=== PATIENT | female | born 1975 | race Caucasian/White ===

== ENCOUNTER 2018-11-28 18:01 | Emergency (ER) | payer OTHER ==
[~2018-11-28] VITALS: Ht 170.2 cm; Wt 79.0 kg
[2018-11-28 19:05] LABS: BASOPHILS # (AUTO) 0.1 X10'3 (0-0.2); BASOPHILS % (AUTO) 0.7 % (0-1); EOSINOPHILS # (AUTO) 0.1 X10'3 (0-0.9); EOSINOPHILS % (AUTO) 1.2 % (0-6); HEMATOCRIT 42.7 % (35.0-45.0); HEMOGLOBIN 14.1 g/dl (12.0-16.0); LYMPHOCYTES # (AUTO) 1.3 X10'3 (1.1-4.8); LYMPHOCYTES % (AUTO) 17.3 % (21-51); MEAN CORPUSCULAR HEMOGLOBIN 31.2 PG (27.0-31.0); MEAN CORPUSCULAR VOLUME 94.4 FL (78-98); MEAN PLATELET VOLUME 7.6 FL (7.4-10.4); MONOCYTES # (AUTO) 0.5 X10'3 (0-0.9); MONOCYTES % (AUTO) 6.1 % (2-12); NEUTROPHILS # (AUTO) 5.7 X10'3 (1.8-7.7); NEUTROPHILS % (AUTO) 74.7 % (42-75); PLATELET COUNT 239 X10'3 (140-440); RED BLOOD COUNT 4.53 X10'6 (4.20-5.60); RED CELL DISTRIBUTION WIDTH 12.9 % (11.5-14.5); WHITE BLOOD COUNT 7.6 X10'3 (4.5-11.0)
[2018-11-28 19:08] LABS: ALANINE AMINOTRANSFERASE 21 U/L (12-78); ALBUMIN 3.7 G/DL (3.4-5.0); ALKALINE PHOSPHATASE 33 IU/L (46-116); ANION GAP 9 (8-16); ASPARTATE AMINO TRANSFERASE 12 U/L (10-37); BILIRUBIN,TOTAL 0.6 MG/DL (0.1-1.0); BLOOD UREA NITROGEN 11 MG/DL (7-18); BUN/CREATININE RATIO 11.3 (6.6-38.0); CALCIUM 8.5 MG/DL (8.5-10.1); CHLORIDE 106 MMOL/L (99-107); CREATININE 0.97 MG/DL (0.40-0.90); ETHANOL < 0.010 GM/DL (0.0-0.010); GLUCOSE 96 MG/DL (70-104); POTASSIUM 3.5 MMOL/L (3.5-5.1); SODIUM 142 MMOL/L (135-145); TOTAL PROTEIN 7.5 G/DL (6.4-8.2); eGFR 62 ML/MIN
--- NOTE | 2018-11-28 19:11 | NUR ---
Assumed patient care. Report from DESTINI Villatoro. This patient is lying on her left side sleeping on bed 21. Prior to sleeping this patient exhibited paranoia and complained of audible hallucinations which included command hallucinations and strange noises. Per the [place] prec[employer] police lieutenant this patients home was very clean and organized. There is no known mental health history.
--- NOTE | 2018-11-28 19:44 | NUR ---
The patient provides additional history. She describes recently loosing her job at the [employer] as she had taken time off to investigate her neighbor for possible sexual offences. The patient describes command hallucinations that tell her to investigate her neighbor and to also masterbate. Patient describes intermittent olfactory hallucinations, like the smell of battery acid that comes and goes. In addition describes new headaches, "that surround the top of my head, not like my migranes." The new headaches have been present for about a week and a half. The patient states the voices and signals began around May of this year and have gotten more frequent. Addendum: 11/28/18 at 1948 by NIC Patient also exhibits rapid speech and flight of ideas.
--- NOTE | 2018-11-28 21:21 | NUR ---
Pt up to bathroom to provide a UA. Pt given personal hygiene products and disposable undergarments.
[2018-11-28 21:26] LABS: URINE HCG NEGATIVE (NEG)
[2018-11-28 21:38] LABS: URINE AMPHETAMINE SCREEN NEGATIVE (Neg); URINE BARBITUATE SCREEN NEGATIVE (Neg); URINE BENZODIAZEPINES SCREEN NEGATIVE (Neg); URINE CANNABINOID SCREEN NEGATIVE (Neg); URINE COCAINE SCREEN NEGATIVE (Neg); URINE METHADONE SCREEN NEGATIVE (Neg); URINE OPIATE SCREEN NEGATIVE (Neg); URINE PHENCYCLIDINE SCREEN NEGATIVE (Neg)
--- NOTE | 2018-11-28 22:30 | NUR ---
Packet faxed to [facility]. Confirmed receipt of packet with Gene @ [facility] office.
--- NOTE | 2018-11-29 00:12 | NUR ---
Patient is sleeping quietly. In direct view from nursing station. Q15 minute rounding for patient safety.
--- NOTE | 2018-11-29 06:30 | NUR ---
Asleep upon change of shift observation. Undisturbed at this time. Color and breathing WNL.
--- NOTE | 2018-11-29 08:00 | NUR ---
[id number], Erick Conroy called asking for info on patient's status. His number is [phone]. His Claribel's phone number (patient's sister) is [phone]. And pt's other sister Sandra's number is [phone].
--- NOTE | 2018-11-29 08:30 | NUR ---
Awakened for breakfast. Ate her meal without event. Stares at staff but says nothing.
--- NOTE | 2018-11-29 09:30 | NUR ---
Criss from [facility] at bedside to evaluate patient. Patient's meet criteria for continued 5150 status.
--- NOTE | 2018-11-29 13:00 | NUR ---
Slept until this time. Awakened for lunch. Ate her meal and returned to sleep.
[2018-11-29 13:04] LABS: CLARITY,URINE CLOUDY (Clear); COLOR,URINE ORANGE (Yellow); GLUCOSE, URINE NEGATIVE (Neg); KETONES,URINE 15 mg/dl (Neg); LEUKOCYTE ESTERASE ,URINE SMALL (Neg); NITRITES, URINE NEGATIVE (Neg); OCCULT BLOOD,URINE LARGE (Neg); PH,URINE 8.5 (4.8-8.0); PROTEIN,URINE 100 mg/dl (Neg); UROBILINOGEN,URINE >=8.0 E.U/dL (0.2-1.0)
[2018-11-29 13:14] LABS: UA COLLECTION TYPE CLN CATCH MIDSTREAM
[2018-11-29 13:20] LABS: BACTERIA,URINE 4+ /HPF (Neg); MUCUS STRANDS MANY /LPF (Neg); RBC,URINE 50-100 /HPF (0-2); SQUAMOUS EPITHELIAL CELL,UR MANY /LPF (FEW)
--- NOTE | 2018-11-29 14:30 | NUR ---
Rene Sahu PA here to evaluate patient for possible admission. Patient spoke at length to Rene Sahu. Psychotic, paranoid content of conversation noted.
[2018-11-29 17:50] VITALS: BP 113/74
--- NOTE | 2018-11-29 17:52 | NUR ---
Accepted for in-patient care at [facility]. Will be brought up after change of shift.
[2018-11-29] MEDS ORDERED: NO HOME MEDS (20:00)
== END 2018-11-29 20:22 ==
LOC: ER 18:02
DX: F29 Unspecified psychosis not due to a substance or known physiological condition (principal); F22 Delusional disorders; R51 Headache; R68.84 Jaw pain; Z88.1 Allergy status to other antibiotic agents
CPT/HCPCS: 36415; 80053; 80305; 80320; 81001; 81025; 84443; 85025; 99285

== ENCOUNTER 2018-11-29 16:49 | Inpatient (IN) | payer MEDICAID, OTHER ==
[~2018-11-29] VITALS: Ht 170.2 cm; Wt 85.0 kg
[2018-11-29] MEDS ORDERED: hydrOXYzine 25 MG tablet PO PRN (19:20)
[2018-11-29] MEDS ORDERED: mag hydrox/Alum hydrox/simeth 30ml oral suspension PO PRN (19:20)
[2018-11-29] MEDS ORDERED: magnesium hydroxide 30ml (MOM) UD suspension PO PRN (19:20)
[2018-11-29] MEDS ORDERED: acetaminophen 325mg tablet PO PRN ×2 (19:20)
[2018-11-29] MEDS ORDERED: loperamide 2mg capsule PO PRN (19:20)
[2018-11-29 20:00] VITALS: BP 108/78
[2018-11-29] MEDS ORDERED: NO HOME MEDS (20:00)
[2018-11-29] MEDS: LORazepam 1 MG tablet PO PRN (21:22)
[2018-11-29] MEDS: risperiDONE 0.5mg tablet PO SCH (21:22)
--- NOTE | 2018-11-30 02:59 | NUR ---
TUBE HANDLER NOTE: LEGAL HOLD: 5150 for DTS/GD REASON FOR ADMIT: Client was BIB [employer] after she confronted neighbors who she believed were remotely listening into her home and sending "frequencies that were shocking" her. Client reported that she began to hear the voices of these neighbors approximately one month ago. Initially the voices "sounded like people having a conservation in another room". The voices then became more distinct and she recognized them as her neighbors. The voices were discussing how they were going to "prank" her and send frequencies that would make her "masturbate so they could watch". The client also reports hearing "a clicking sound and a high pitched noise in my ear". She describes episodes of chest pain and pain in her left arm. Client stated, "I felt like I was buzzing". "I would wake up completely alert." Client reports insomnia. Client denies prior inpatient psych admits, therapy, or mental health diagnosis. Client denies SI or any suicide attempts. Client has never taken any psychotropic medications. THIS SHIFT: Client arrived on the unit at 19:30 accompanied by Jill Brown Client was transported in a wheelchair. Client showered, personal belongings were inventoried by Mariah Rocha, and a skin assessment was performed by Swathi Donnelly RN and this RN. Client was cooperative during the admission process. Clients speech is rapid with run-on sentences. She describes an elaborate plan involving several neighbors. Client was offered 1 mg Ativan for anxiety, which she accepted. Client fell asleep shortly after receiving Ativan. THOUGHT: Delusional. MOOD: Anxious. MED HX: IBS, TMJ pain, anemia, and possible UTI (currently). Client is GD and at risk for losing her housing, as she called the landlord and others regarding this plot. Client lacks insight and does not question the logic of her beliefs. Client is unable to obtain housing or care for herself at this time.
[2018-11-30 07:34] LABS: HEMOGLOBIN A1C 5.1 % (4.5-6.2)
[2018-11-30 07:37] LABS: CHOLESTEROL 166 MG/DL (0-200); HDL CHOLESTEROL 42 MG/DL (35-60); LDL CHOLESTEROL 104 MG/DL (50-100); TRIGLYCERIDES 84 MG/DL (20-135)
[2018-11-30 07:42] VITALS: BP 110/67
[2018-11-30] MEDS ORDERED: tuberculin, purif. prot. deriv. 5 units/0.1ml ID ONE (10:00)
[2018-11-30 17:41] LABS: COLOR,URINE RED (Yellow)
[2018-11-30 17:43] LABS: UA COLLECTION TYPE CLN CATCH MIDSTREAM
[2018-11-30 17:44] LABS: CLARITY,URINE CLOUDY (Clear)
[2018-11-30 17:46] LABS: BACTERIA,URINE 2+ /HPF (Neg); RBC,URINE TNTC /HPF (0-2)
[2018-11-30 17:47] LABS: MUCUS STRANDS MODERATE /LPF (Neg)
[2018-11-30 17:48] LABS: SQUAMOUS EPITHELIAL CELL,UR MANY /LPF (FEW)
--- NOTE | 2018-11-30 17:57 | NUR ---
Nursing Progress Note: Legal hold: 5250 Client on involuntary status for DTS Report received from Swathi AMBROSIO, with use of SBAR Why are they here: Client was BIB [employer] after she confronted neighbors who she believed were remotely listening into her home and sending "frequencies that were shocking" her. Client reported that she began to hear the voices of these neighbors approximately one month ago. Initially the voices "sounded like people having a conservation in another room". The voices then became more distinct and she recognized them as her neighbors. The voices were discussing how they were going to "prank" her and send frequencies that would make her "masturbate so they could watch". Assessment: What has happened this shift: Received Pt in bed sleeping w/o distress at change of shift. Pt awoke for breakfast and Tolerated being around others well.Pt spent AM free time sleeping. Sat by window in afternoon and spoke about the signals and waves that she is receiving, and also being talked about and spied on by neighbors. Pleasant and cooperative in conversation and reports feeling safe here. The comments she heres from neighbors is sexual in nature and offensive to her. Spoke with Pt's sister on phone who stated paramoid thoughts happened when she lived in [place] and thought upstairs tenent was drilling holes in the floor and watching her. UA sample obtained and educated on clean catch technique, but sample rejected for culture by lab. S/I, H/I: Denies A/VH: Denies Sleep: See sleep hours. 6.5 ADL's: Independent Group attendance: No Were meds taken: No meds given this shift Any med S/E: None reported by patient or observed. Mental Status Exam Appearance: Clean and well groomed. Wears green scrubs. Eye contact: Direct Behavior: Pleasant and cooperative. Speech: Hyperverbal, normal rate/rhythm Mood: Anxious. Affect: Blunted Thought process: Ruminating. Thought Content: On being spied on and receiving mesages from neighbors.. Cognition: A &O X3 Insight: Fair Judgment: Fair Interventions: PRN's used: None Therapeutic interventions: Continued therapeutic support and medication management needed to provide stabilization, prevent decompensation, improve coping mechanisms decreasing risk to patient and re-admittance. Restraints/seclusion/emergency medication: N/A Justification of Continued Inpatient Treatment: Pt. is unable to provide for his own food, clothing and prison. Continued therapeutic support and medication management needed to provide stabilization, prevent decompensation, decreasing risk to patient and re-admittance
[2018-11-30 19:47] VITALS: BP 128/85
[2018-11-30] MEDS ORDERED: traZODone 50mg tablet PO SCH (20:00)
[2018-11-30] MEDS: risperiDONE 0.5mg tablet PO SCH (20:14)
--- NOTE | 2018-11-30 22:33 | NUR ---
Nursing Progress Note One to one with the patient to assess for the severity of disordered thought processes. The patient was very friendly when approached for the evening assessment. She is taking care of her ADLs independently and she did shower. She reports her appetite has been good. Throughout the evening assessment she repeatedly made references to her neighbors and her delusional beliefs that she was being targeted. She stated "I was convulsing from electric shocks" She stated that has been increasingly targeted by her neighbors for the past several weeks and added "because I've been feeling the jaw and ear pain" She also stated that she was a "sexually motivated target" She reports that she has been hearing conversations while at home. She denies being depressed and stated her mood was "relaxed' here in the hospital but then added, "I just hope the compressor operator adjuster gets these guys" She does have poor insight. She reports that she is having cramping pain with urination and difficulty voiding. She was made aware that the MD ordered another urine specimen. Reviewed with the patient on how to give a clean catch urine specimen.
[2018-12-01 08:29] VITALS: BP 111/75
[2018-12-01 14:23] LABS: CLARITY,URINE CLOUDY (Clear); COLOR,URINE YELLOW (Yellow); GLUCOSE, URINE NEGATIVE (Neg); KETONES,URINE NEGATIVE (Neg); LEUKOCYTE ESTERASE ,URINE NEGATIVE (Neg); NITRITES, URINE NEGATIVE (Neg); OCCULT BLOOD,URINE LARGE (Neg); PH,URINE 5.5 (4.8-8.0); PROTEIN,URINE TRACE mg/dl (Neg)
[2018-12-01 14:33] LABS: MUCUS STRANDS MANY /LPF (Neg); SQUAMOUS EPITHELIAL CELL,UR MODERATE /LPF (FEW); UA COLLECTION TYPE STRAIGHT CATH
[2018-12-01 14:34] LABS: HYALINE CASTS 0-3 /LPF (NEGATIVE)
[2018-12-01 14:36] LABS: RBC,URINE 50-100 /HPF (0-2)
[2018-12-01 14:37] LABS: BACTERIA,URINE FEW /HPF (Neg); WBC,URINE 0-4 /HPF (0-4)
--- NOTE | 2018-12-01 15:02 | NUR ---
Nursing Progress Note: Krystal Legal hold: 5250 Client on involuntary status for DTS Report received from Swathi AMBROSIO, with use of SBAR Why are they here: Client was BIB [employer] after she confronted neighbors who she believed were remotely listening into her home and sending "frequencies that were shocking" her. Client reported that she began to hear the voices of these neighbors approximately one month ago. Initially the voices "sounded like people having a conversation in another room". The voices then became more distinct and she recognized them as her neighbors. The voices were discussing how they were going to "prank" her and send frequencies that would make her "masturbate so they could watch". Assessment: What has happened this shift: Client was in bed to start the shift. Client said she had no issues with pain. She has been social on unit this am and is amicable to care. Well groomed and alert and oriented x 4. Upon interview this am, client reported that she feels her neighbors are spying on and pranking her. She states that she hear conversations others are having about her when she lowers the volume on her TV. She further feels that her neighbor is a, "pervert" and he only wants to, "watch her masturbate for him". She states that she has not slept for several days and also has not eaten for about the same length of time. Client attended group in the am and was social with both staff as well as peers. Due to inability to obtain a viable clean catch urine specimen, Hospitalist ordered an in and out cath. Patient is amicable to this procedure but requested a female RN to perform the procedure. No behavioral issues noted. Patient is compliant with all aspects of her care. S/I, H/I: Denies A/VH: Denies Sleep: See sleep hours ADL's: Independent Group attendance: No Were meds taken: No meds given this shift Any med S/E: None reported by patient or observed. Mental Status Exam Appearance: Clean and well groomed. Eye contact: Direct Behavior: Pleasant and cooperative. Speech: Hyperverbal, normal rate/rhythm Mood: Anxious. Affect: Blunted Thought process: Ruminating. Thought Content: On being spied on and receiving mesages from neighbors. Cognition: A &O X3 Insight: Fair Judgment: Fair Interventions: PRN's used: None Therapeutic interventions: Continued therapeutic support and medication management needed to provide stabilization, prevent decompensation, improve coping mechanisms decreasing risk to patient and re-admittance. Restraints/seclusion/emergency medication: N/A Justification of Continued Inpatient Treatment: Pt. is unable to provide for his own food, clothing and senior living. Continued therapeutic support and medication management needed to provide stabilization, prevent decompensation, decreasing risk to patient and re-admittance.
--- NOTE | 2018-12-01 16:38 | NUR ---
Nursing note: Dr. Salazar was consulted by phone regarding results from UA conducted earlier in the shift. Dr. Salazar would like the patient to increase po fluids and wishes for the staff to monitor for s/s of UTI and report any findings. No need for medication at this point.
[2018-12-01 20:00] VITALS: BP 120/79
[2018-12-01] MEDS ORDERED: traZODone 50mg tablet PO SCH (20:00)
[2018-12-01] MEDS: risperiDONE 0.5mg tablet PO SCH (20:27)
[2018-12-01] MEDS: LORazepam 1 MG tablet PO PRN (20:27)
--- NOTE | 2018-12-01 23:44 | NUR ---
The patient has been resting on her bed but then up for snack in the patient dining room. One to one with the patient to assess for severity of disordered thought processes. The patient was friendly and had a bright affect when approached for the evening assessment. She has the ability for a very brief time to discuss rational topics but she quickly fixates on her paranoid delusions about her apartment being infiltrated by her neighbors in an attempt to harm her. "I feel like I was being zapped all the time and having someone in my house threatening me" She stated that she was a target and they were planning to rape and sodomize her then kill her. She also stated that this has been occurring for over one year and she had made repeated police reports on her neighbor. She stated that she believes that people have redirected satellite signals and hacked into her electronics. She has poor insight that she is mentally ill. She stated that she felt that the Trazodone that she took last night made her tired and lethargic and caused her to have a headache this evening and she refused even the lower dose of trazodone that was offered at . She had her Risperdal increased and when she saw two of the tablets in the med cup she stated "Oh I'm getting two muscle relaxants tonight?" She was made aware that those were not muscle relaxants but meds to help with her thought process. She denies that she is hearing odd things her in the hospital. She made numerous statements about hearing derogatory comments while in her apartment. She also stated she was seeing people by her window but when she looked out the door there was no one there. The patient was given prn ativan per her request at . She also was given tylenol for complaints of a headache. The patient continues to require psychiatric stabilization to increase her insight into her symptoms and be successful living in her apartment.
[2018-12-02 08:09] VITALS: BP 121/72
--- NOTE | 2018-12-02 13:17 | NUR ---
Nursing Progress Note: Krystal Legal hold: 5250 Client on involuntary status for DTS Report received from Swathi AMBROSIO, with use of SBAR Why are they here: Client was BIB [employer] after she confronted neighbors who she believed were remotely listening into her home and sending "frequencies that were shocking" her. Client reported that she began to hear the voices of these neighbors approximately one month ago. Initially the voices "sounded like people having a conversation in another room". The voices then became more distinct and she recognized them as her neighbors. The voices were discussing how they were going to "prank" her and send frequencies that would make her "masturbate so they could watch". Assessment: What has happened this shift: Client was in bed to start the shift. Client said she had no issues with pain. She has been social on unit this am and is amicable to care. Well groomed and alert and oriented x 4. Client wants to be tested for communicable diseases as she feels that someone may have "infected" her when they came to her house. Client has been social on unit and attended groups with no behavioral issues noted. Diet order was changed by CRN to reflect proper allergies and allow client to eat the way she enjoys at home. Client does feel that Trazodone may have been responsible for her headaches. Trazodone has been discontinued per Doctor's order. S/I, H/I: Denies A/VH: Denies Sleep: See sleep hours ADL's: Independent Group attendance: No Were meds taken: No meds given this shift Any med S/E: None reported by patient or observed. Mental Status Exam Appearance: Clean and well groomed. Eye contact: Direct Behavior: Pleasant and cooperative. Speech: Hyperverbal, normal rate/rhythm Mood: Anxious. Affect: Blunted Thought process: Ruminating. Thought Content: On being spied on and receiving mesages from neighbors. Cognition: A &O X3 Insight: Fair Judgment: Fair Interventions: PRN's used: None Therapeutic interventions: Continued therapeutic support and medication management needed to provide stabilization, prevent decompensation, improve coping mechanisms decreasing risk to patient and re-admittance. Restraints/seclusion/emergency medication: N/A Justification of Continued Inpatient Treatment: Pt. is unable to provide for his own food, clothing and senior living. Continued therapeutic support and medication management needed to provide stabilization, prevent decompensation, decreasing risk to patient and re-admittance.
[2018-12-02 20:00] VITALS: BP 121/80
[2018-12-02] MEDS: mirtazapine 15mg tablet PO SCH (21:00)
[2018-12-02] MEDS: risperiDONE 0.5mg tablet PO SCH (21:01)
[2018-12-02] MEDS: LORazepam 1 MG tablet PO PRN (21:06)
--- NOTE | 2018-12-03 03:46 | NUR ---
Nursing Progress Note: Krystal Legal hold: 5250 Client on involuntary status for DTS Report received from DESTINI Whitehead, with use of SBAR Why are they here: Client was BIB [employer] after she confronted neighbors who she believed were remotely listening into her home and sending "frequencies that were shocking" her. Client reported that she began to hear the voices of these neighbors approximately one month ago. Initially the voices "sounded like people having a conversation in another room". The voices then became more distinct and she recognized them as her neighbors. The voices were discussing how they were going to "prank" her and send frequencies that would make her "masturbate so they could watch". Assessment: Patient is coloring in the day room following shift change. Patient states intermittent "high frequency noises," are still affecting her. Headaches are declining. "I'm starting to feel like myself again." Patient still exhibits some paranoia. Patient is socializing well with other patients. Minor anxiety is present. Her affect is blunted. Patient is advised that she is in a safe place. S/I, H/I: Denies A/VH: Denies Sleep: Will tally in am. ADL's: Independent Group attendance: No Were meds taken: Patient is medication compliant. Any med S/E: None reported by patient or observed. Mental Status Exam Appearance: Clean and well groomed. Eye contact: Direct Behavior: Pleasant and cooperative. Speech: Hyperverbal, normal rate/rhythm Mood: Anxious. Affect: Blunted Thought process: Ruminating. Thought Content: On being spied on and receiving messages from neighbors. Cognition: A &O X3 Insight: Fair Judgment: Fair Interventions: PRN's used: None Therapeutic interventions: Continued therapeutic support and medication management needed to provide stabilization, prevent decompensation, improve coping mechanisms decreasing risk to patient and re-admittance. Restraints/seclusion/emergency medication: N/A Justification of Continued Inpatient Treatment: Pt. is unable to provide for his own food, clothing and penitentiary. Continued therapeutic support and medication management needed to provide stabilization, prevent decompensation, decreasing risk to patient and re-admittance.
[2018-12-03 08:00] VITALS: BP 94/61
--- NOTE | 2018-12-03 11:20 | NUR ---
Good appetite, eating well, average PO intake 75-100%. Meeting needs. No nutrition problem at this time. Recommend: 1. continue regular diet 2. bowel care as needed 3. weekly wts Addendum: 12/03/18 at [address] Amended: Links added.
--- NOTE | 2018-12-03 17:03 | NUR ---
Nursing Progress Note Legal hold: Vol Client on involuntary status for DTS Report received with use of SBAR from DESTINI Chavez Why are they here: Client was BIB [employer] after she confronted neighbors who she believed were remotely listening into her home and sending "frequencies that were shocking" her. Client reported that she began to hear the voices of these neighbors approximately one month ago. Initially the voices "sounded like people having a conversation in another room". The voices then became more distinct and she recognized them as her neighbors. The voices were discussing how they were going to "prank" her and send frequencies that would make her "masturbate so they could watch". Assessment: What has happened this shift: Client up sitting on her bed during am med pass and morning assessment. Client reports she would like to be tested for HIV and STDs because "I woke up one morning in my home with my top off." She then elaborated on the possibility that men have come into her home without her knowledge. Client shared that her BF cheated on her and that he is no longer in their home she is living alone. She also shared how stressful she feels at work because of another "lady stealing my sales." S/I, H/I: Denies A/VH: Denies Sleep: Sleeps well at night and naps during the day ADL's: Independent Group attendance: No Were meds taken: No meds given this shift Any med S/E: None reported by patient or observed. Mental Status Exam Appearance: Clean and well groomed. Eye contact: Direct Behavior: Pleasant and cooperative. Speech: Hyper verbal Mood: Anxious. Affect: Blunted Thought process: Ruminating Thought Content: Concerned she was infected while sleeping. Cognition: A/Ox3 Insight: Fair Judgment: Fair Interventions: PRN's used: None Therapeutic interventions: Provided therapeutic communication and active listening, medication administration/education/monitoring, encouraged to attend groups, encouraged client to sign in voluntarily and stay until MD discharges, monitored safety checks q 15min. Restraints/seclusion/emergency medication: N/A Justification of Continued Inpatient Treatment: Continued therapeutic support and medication management needed to provide stabilization, prevent decompensation, decreasing risk to patient and re-admittance.
[2018-12-03 19:00] VITALS: BP 128/89
[2018-12-03] MEDS: risperiDONE 0.5mg tablet PO SCH (20:39)
[2018-12-03] MEDS: mirtazapine 15mg tablet PO SCH (20:39)
--- NOTE | 2018-12-04 04:02 | NUR ---
Nursing Progress Note Legal hold: Vol Client on involuntary status for DTS Report received with use of SBAR from DESTINI Chavez Why are they here: Client was BIB [employer] after she confronted neighbors who she believed were remotely listening into her home and sending "frequencies that were shocking" her. Client reported that she began to hear the voices of these neighbors approximately one month ago. Initially the voices "sounded like people having a conversation in another room". The voices then became more distinct and she recognized them as her neighbors. The voices were discussing how they were going to "prank" her and send frequencies that would make her "masturbate so they could watch". Assessment: What has happened this shift: This patient is socializing in the community room with other patients. Patient exhibits an upbeat behavior. She denies hallucinations, yet she still describes high pitch tones and vibrations that are being directed at her. Patient exhibits paranoia, a rapid speech pattern, is scrutinizing her medications. The patient was given a nurse teaching about her medications, what they are used for, etc. The patient exhibits mild anxiety. This patient feels her mental stat is better than on admission. She will not elaborate on this however. This patient is advised that she is in a safe place. S/I, H/I: Denies A/VH: Denies, yet describes tones and vibrations being directed at her. Sleep: Sleeping well this night ADL's: Independent Group attendance: No Were meds taken: No meds given this shift Any med S/E: None reported by patient or observed. Mental Status Exam Appearance: Clean and well groomed. Eye contact: Direct Behavior: Pleasant and cooperative. Speech: Hyper verbal Mood: Anxious. Affect: Blunted Thought process: Ruminating Thought Content: Tones and vibrations affecting me. Cognition: A/Ox3, somewhat altered to situation. Insight: Fair Judgment: Fair Interventions: PRN's used: None Therapeutic interventions: Provided therapeutic communication and active listening, medication administration/education/monitoring, encouraged to attend groups, encouraged client to sign in voluntarily and stay until MD discharges, monitored safety checks q 15min. Restraints/seclusion/emergency medication: N/A Justification of Continued Inpatient Treatment: Continued therapeutic support and medication management needed to provide stabilization, prevent decompensation, decreasing risk to patient and re-admittance.
[2018-12-04 08:00] VITALS: BP 117/69
--- NOTE | 2018-12-04 15:58 | NUR ---
Nursing Progress Note Legal hold: Vol Client on involuntary status for DTS Report received with use of SBAR from Janice Andrews RN Why are they here: Client was BIB [employer] after she confronted neighbors who she believed were remotely listening into her home and sending "frequencies that were shocking" her. Client reported that she began to hear the voices of these neighbors approximately one month ago. Initially the voices "sounded like people having a conversation in another room". The voices then became more distinct and she recognized them as her neighbors. The voices were discussing how they were going to "prank" her and send frequencies that would make her "masturbate so they could watch". Assessment: What has happened this shift: Client sleeping at start of the shift. During am assessment client reports she is "overmedicated." Encouraged her to discuss with her psychiatrist today. Client isolates in bed reading books. S/I, H/I: Denies A/VH: Denies Sleep: Sleeps well at night and naps during the day ADL's: Independent Group attendance: No Were meds taken: No Meds given this shift Any med S/E: None reported by patient or observed. Mental Status Exam Appearance: Clean and well groomed. Eye contact: Direct Behavior: Pleasant and cooperative. Speech: Hyper verbal Mood: Calm; cooperative Affect: Blunted Thought process: upset over night medication Thought Content: focused on her medications Cognition: A/Ox4 Insight: Fair Judgment: Fair Interventions: PRN's used: None Therapeutic interventions: Provided therapeutic communication and active listening, medication administration/education/monitoring, encouraged to attend groups, monitored q 15min for safety. Restraints/seclusion/emergency medication: N/A Justification of Continued Inpatient Treatment: Continued therapeutic support and medication management needed to provide stabilization, prevent decompensation, decreasing risk to patient and re-admittance.
[2018-12-04 20:00] VITALS: BP 129/80
[2018-12-04] MEDS: mirtazapine 15mg tablet PO SCH (20:51)
[2018-12-04] MEDS: risperiDONE 0.5mg tablet PO SCH (20:51)
[2018-12-05 08:22] VITALS: BP 115/64
--- NOTE | 2018-12-05 15:36 | NUR ---
Nursing Progress: Note Jus Legal hold: Vol Client on involuntary status for DTS Report received from [facility] Shift Nurse Why are they here: Client was BIB [employer] after she confronted neighbors who she believed were remotely listening into her home and sending "frequencies that were shocking" her. Client reported that she began to hear the voices of these neighbors approximately one month ago. Initially the voices "sounded like people having a conversation in another room". The voices then became more distinct and she recognized them as her neighbors. The voices were discussing how they were going to "prank" her and send frequencies that would make her "masturbate so they could watch". Assessment: What has happened this shift: Client was in bed to start shift but woke and participated in am assessment. Client stated, "my medication makes me not able to pee". Client has no somatic complaints and states she slept better without Trazodone. Client now visible and social on the unit and playing games with peers in Day Room. When questioned about her illness, patient displays little or no insight. Stock [employer] spoke with clients sister in [place] last week and sister relays that this, "paranoid behavior" has taken place in the past and she went on to say, ' this is certainly not new to us". Client showered and has been compliant with all aspects of her care. Client visible on unit this afternoon. Social with Staff as well as peer group. S/I, H/I: Denies A/VH: Denies Sleep: ADL's: Independent Group attendance: No Were meds taken: Any med S/E: None reported by patient or observed. Mental Status Exam Appearance: Clean and well groomed. Eye contact: Direct Behavior: Pleasant and cooperative. Speech: Hyper verbal Mood: Calm; cooperative Affect: Blunted Thought process: upset over night medication Thought Content: focused on her medications Cognition: A/Ox4 Insight: Fair Judgment: Fair Interventions: PRN's used: None Therapeutic interventions: Provided therapeutic communication and active listening, medication administration/education/monitoring, encouraged to attend groups, monitored q 15min for safety. Restraints/seclusion/emergency medication: N/A Justification of Continued Inpatient Treatment: Continued therapeutic support and medication management needed to provide stabilization, prevent decompensation, decreasing risk to patient and re-admittance.
[2018-12-05 19:57] VITALS: BP 108/62
[2018-12-05] MEDS: risperiDONE 0.5mg tablet PO SCH (21:02)
[2018-12-05] MEDS: mirtazapine 15mg tablet PO SCH (21:02)
--- NOTE | 2018-12-06 04:45 | NUR ---
Nursing Progress: Note Legal hold: Vol Client on involuntary status for DTS Report received from [facility] Why are they here: Client was BIB [employer] after she confronted neighbors who she believed were remotely listening into her home and sending "frequencies that were shocking" her. Client reported that she began to hear the voices of these neighbors approximately one month ago. Initially the voices "sounded like people having a conversation in another room". The voices then became more distinct and she recognized them as her neighbors. The voices were discussing how they were going to "prank" her and send frequencies that would make her "masturbate so they could watch". Assessment: What has happened this shift: Pt up on unit socializing with staff and other pts. Describes mood as "good". Educated on HS meds. Pt verbalized understanding. Pt said she feels she is on the right medications because she is sleeping well and waking up feeling good in the AM. No change in Pts delusional thinking that her neighbors were surveilling her. S/I, H/I: Denies A/VH: Denies Sleep: Sleeping at this time ADL's: Independent Group attendance: No Were meds taken: Yes Any med S/E: None reported by patient or observed. Mental Status Exam Appearance: Clean and well groomed. Eye contact: Direct Behavior: Pleasant and cooperative. Speech: Hyper verbal Mood: Calm; cooperative Affect: Animated Thought process: Organized Thought Content: Discharge Cognition: A/Ox4 Insight: Fair Judgment: Fair Interventions: PRN's used: None Therapeutic interventions: Provided therapeutic communication and active listening, medication administration/education/monitoring, encouraged to attend groups, monitored q 15min for safety. Restraints/seclusion/emergency medication: N/A Justification of Continued Inpatient Treatment: Continued therapeutic support and medication management needed to provide stabilization, prevent decompensation, decreasing risk to patient and re-admittance.
[2018-12-06 07:30] VITALS: BP 124/76
[2018-12-06] MEDS ORDERED: MIRT15TA8 PO (11:50)
[2018-12-06] MEDS ORDERED: ATI1T PO (11:50)
[2018-12-06] MEDS ORDERED: RISP0.5T3 PO (11:50)
--- NOTE | 2018-12-06 14:10 | NUR ---
@ 0945 Pt. d/c'd to home via car driven by [employer] office playground worker. Pt. recieved all valuables. received f/u appointment instructions and verbalized understanding. Pt. received scripts and coupons for medications and verbalized understanding that she is picking them up from pharmacy today. Pt.'s mood is calm and cooperative, mood congruent with affect. Pt. denies SI/HI, A/V H. Pt. improving since admission. No acute psychosis or emotional distress. Pt. refused nicotine replacement.
== END 2018-12-06 14:13 | disposition home or self-care (01) | DRG 751 ==
LOC: ADULT MH 16:49
PROVIDERS: ADMIT Psychiatry & Neurology Psychiatry; ATTEND Psychiatry & Neurology Psychiatry
DX: F29 Unspecified psychosis not due to a substance or known physiological condition (principal); R56.9 Unspecified convulsions; G47.00 Insomnia, unspecified; R31.9 Hematuria, unspecified; F41.9 Anxiety disorder, unspecified; Z60.2 Problems related to living alone; K58.9 Irritable bowel syndrome, unspecified; Z82.49 Family history of ischemic heart disease and other diseases of the circulatory system; Z87.891 Personal history of nicotine dependence; Z88.8 Allergy status to other drugs, medicaments and biological substances; Z81.8 Family history of other mental and behavioral disorders
CPT/HCPCS: 36415; 80061; 81001; 83036; 87081; 87088; Z7610